=== PATIENT | female | born 1985 | race Caucasian/White ===

== ENCOUNTER 2021-02-27 11:43 | Emergency (ER) | payer BC ==
[2021-02-27 12:22] VITALS: BMI 36.8
[2021-02-27 14:10] LABS: BASO % 0.5 % (0-2.0); EOS % 1.4 % (0-4.5); HEMATOCRIT 36.6 % (32.4-45.2); HEMOGLOBIN 12.6 GM/dL (10.7-15.3); LYMPH % 31.7 % (8-40); MCH 30.2 pg (25.7-33.7); MCHC 34.5 g/dl (32.0-36.0); MEAN CELL VOLUME 87.6 fl (80-96); MONO % 4.5 % (3.8-10.2); NEUT % 61.9 % (42.8-82.8); PLATELET COUNT 246 10^3/uL (134-434); RBC 4.18 M/mm3 (3.60-5.2); WHITE BLOOD COUNT 7.2 K/mm3 (4.0-10.0)
[2021-02-27 14:17] LABS: INR 0.84 (0.83-1.09); PROTHROMBIN TIME (PATIENT) 10.3 SEC (9.7-13.0)
[2021-02-27 14:19] LABS: ACTIVATED PTT 27.8 SECONDS (25.2-36.5)
[2021-02-27 14:36] LABS: ALBUMIN 3.8 g/dl (3.4-5.0)
[2021-02-27 14:37] LABS: BLOOD UREA NITROGEN 13.2 mg/dL (7-18)
[2021-02-27 14:39] LABS: CREATININE 0.4 mg/dL (0.55-1.3)
[2021-02-27 14:41] LABS: BILIRUBIN,TOTAL 0.3 mg/dL (0.2-1); TOT PROT 7.4 g/dl (6.4-8.2)
[2021-02-27] MEDS ORDERED: KETOROLAC TROMETHAMINE 15 MG/ML VIAL IVPUSH ONE (14:46)
[2021-02-27] MEDS ORDERED: KETOROLAC TROMETHAMINE 15 MG/ML VIAL ONE (14:50)
[2021-02-27 15:29] VITALS: BP 140/67; PULSE 79; TEMP 98.4
== END 2021-02-27 15:45 | disposition home or self-care (01) ==
LOC: JER 11:43
PROC: 3E033GC Introduction of Other Therapeutic Substance into Peripheral Vein, Percutaneous Approach (ICD-10-PCS; principal; 2021-02-27)
DX: N93.9 Abnormal uterine and vaginal bleeding, unspecified (principal)
CPT/HCPCS: 36415; 80053; 84703; 85025; 85610; 85730; 86850; 86900; 86901; 99284-25; C9803; U0003; U0005